=== PATIENT | female | born 1970 | race Caucasian/White ===

== ENCOUNTER → 2019-03-29 | Outpatient (CLI) | payer OTHER | LOC: EMCIMAGING 12:52 → EDSTATUS 12:53 | DX: M50.321 Other cervical disc degeneration at C4-C5 level (principal); M48.02 Spinal stenosis, cervical region; M46.92 Unspecified inflammatory spondylopathy, cervical region; M53.82 Other specified dorsopathies, cervical region; G43.709 Chronic migraine without aura, not intractable, without status migrainosus | CPT/HCPCS: 72050-PN ==